=== PATIENT | female | born 1975 | race Asian ===

== ENCOUNTER 2020-08-04 11:43 | Emergency (ER) | payer OTHER ==
[~2020-08-04] VITALS: Ht 160 cm; Wt 49.9 kg
--- NOTE | 2020-08-04 11:50 | NUR ---
Patient to ER bed 8 to gown for evaluation. Side rails up.
[2020-08-04 11:51] VITALS: BP_SYST 126
--- NOTE | 2020-08-04 11:55 | NUR ---
ER at bedside examining patient.
--- NOTE | 2020-08-04 11:58 | NUR ---
pt arrives from home. States that she swallowed a fish bone yesterday and is c/o 08/15 upon swallowing.
--- NOTE | 2020-08-04 12:08 | NUR ---
Patient transported to radiology via , accompanied by x-ray tech .
[2020-08-04] MEDS: KETOROLAC TROMETHAMINE 60 MG/2 ML VIAL IM ONE (12:33)
--- NOTE | 2020-08-04 12:33 | NUR ---
pt refused Toradol
[2020-08-04 12:54] VITALS: BP_SYST 126
--- NOTE | 2020-08-04 12:55 | NUR ---
Patient given written and verbal discharge instructions and verbalizes understanding. ER MD discussed with patient the results and treatment provided. Patient in stable condition. ID arm band removed. No Rx given. Patient educated on pain management and to follow up with PMD. Pain Scale 2/10. Opportunity for questions provided and answered. Medication side effect fact sheet provided.
== END 2020-08-04 12:55 | disposition home or self-care (01) ==
LOC: SED 11:43
DX: S10.15XA Superficial foreign body of throat, initial encounter (principal); W22.8XXA Striking against or struck by other objects, initial encounter; Y93.89 Activity, other specified; Y92.89 Other specified places as the place of occurrence of the external cause; Y99.8 Other external cause status
CPT/HCPCS: 70360-TC; 96372; 99283; J1885